=== PATIENT | male | born 2005 | race Caucasian/White ===

== ENCOUNTER 2025-06-08 20:06 | Emergency (ER) | payer BC, MEDICAID ==
[~2025-06-08] VITALS: Ht 167.6 cm; Wt 72.6 kg
[2025-06-08 20:23] VITALS: TEMP 97.7
[2025-06-08] MEDS: propofol 10mg/ml 20ml vial IV ONE (20:55)
[2025-06-08] MEDS: normal saline 1000ML IV soln IVB ONE (20:55)
[2025-06-08] MEDS: HYDROcodone/acetaminophen 10/325mg tab PO ONE (20:56)
--- NOTE | 2025-06-08 21:08 | RADIOLOGY REPORT ---
EXAM: DI SHOULDER, COMPLETE (MIN 2 VWS) CLINICAL HISTORY: SHOULDER PAIN LEFT COMPARISON: None TECHNIQUE: DI SHOULDER, COMPLETE (MIN 2 VWS) Findings/Impression: 2 views of the left shoulder. There is no evidence of an acute fracture, dislocation, blastic, or lytic lesions. No radiopaque foreign bodies. No joint effusion or superficial soft tissue abnormalities.
--- NOTE | 2025-06-08 21:09 | RADIOLOGY REPORT ---
EXAM: DI ELBOW, COMPLETE (3VW MIN) CLINICAL HISTORY: pain LEFT COMPARISON: None TECHNIQUE: DI ELBOW, COMPLETE (3VW MIN) Findings/Impression: 3 views of the left elbow. Anterior dislocation of the left humerus in relation to the radius and ulna. There is no evidence of an acute fracture, blastic, or lytic lesions. No radiopaque foreign bodies. No superficial soft tissue abnormalities.
[2025-06-08] MEDS: ondansetron/PF 4mg/2ml inj IV ONE (21:26)
[2025-06-08] MEDS: morphine 4 MG/ML inj SYRINge IV ONE (21:26)
--- NOTE | 2025-06-08 22:47 | RADIOLOGY REPORT ---
CLINICAL INDICATION: post reduction xray LEFT TECHNIQUE: DI ELBOW,LIMITED (AP/LAT) Comparison: DI ELBOW, COMPLETE (3VW MIN) on DOS: 06/08/25 FINDINGS/IMPRESSION: : Interval reduction of the left elbow joint , anatomic alignment. Elbow joint effusion.
--- NOTE | 2025-06-08 23:33 | Physician Documentation ---
History of Present Illness ~ Chief Complaint: Shoulder pain Stated Complaint: ELBOW PAIN Time Seen by MD: 21:00 Mode of Arrival: POV, Ambulatory HPI This is a 19-year-old male who was practicing [employer] when he was taken down and his elbow was in an awkward position. He reports an immediate onset of sharp nonradiating pain and obvious deformity of the elbow, not able to move the elbow. No palliating factors, aggravated by any attempt to range the joint. No head strike, no loss of consciousness. No blood thinners. This never happened in the past. Did not attempt to treat it. No concern for tobacco, alcohol or illicit substances use Tetanus within 5 years?: No Medication Reconciliation Allergies: Coded Allergies: No Known Allergies (Unverified , 06/08/25) Review of Systems ROS 10 point review of systems was performed and unless noted above in HPI is negative for acute process/complaint. Physical Exam Vital Signs: Temperature: 97.7, Source: Oral, Heart Rate: 94, Respiratory Rate: 16, BP: 129/94, Pulse Oximetry: 100, Weight: 72.600 Oxygen Flow Rate: 0 Physical Exam GENERAL: Awake, alert, oriented, GCS 15, no apparent distress, non-toxic appearing, answers questions, follows commands appropriately. HEENT: Atraumatic, normocephalic, pupils equal, extraocular muscles intact, sclerae anicteric, mucus membranes moist, oropharynx is clear, no stridor. NECK: supple, full active range of motion, trachea midline, no thyromegaly, no lymphadenopathy, no JVD. CARDIOVASCULAR: regular rate/rhythm, no murmurs/gallops/rubs, Pulses are 2+ in all extremities and symmetric. Capillary refill less than 2 seconds. PULMONARY: Nonlabored, good air movement ,no respiratory distress, speaking in full sentences, clear to auscultation bilaterally, no wheezing, no ronchi, no rales, no accessory muscle use. GASTROINTESTINAL: Soft, non-tender, non-distended, normal active bowel sounds, no organomegaly, no pulsatile masses, no CVA tenderness. NEUROLOGIC: Lucid with normal mental status. Normal facial symmetry. Moves all extremities symmetrically and with purpose. No truncal ataxia. Speech is fluid without evidence of dysarthria or aphasia, no focal deficits appreciated. MUSCULOSKELETAL: There is full range of motion of all extremities. There is no joint pain or joint swelling or joint erythema. There is no muscle pain or tenderness or swelling. EXTREMITIES: warm, well-perfused, no cyanosis, no clubbing, no edema, no acute deformities. Skin: warm, dry, no rashes or lesions, no jaundice, no petechiae orpurpura. No ecchymosis. PSYCHIATRIC: Normal affect, normal insight, normal concentration. Focused exam: There is an obvious dislocation of the elbow with the humerus anterior to the ulna. Neurovascularly intact distally. Procedures Joint Reduction Joint Reduction : Reduction By: myself Conscious Sedation: Yes Reduction Attempts: 1 Pre-Procedure NV Exam: within normal limits Post-Procedure NV Exam: within normal limits Post Reduction Film: joint reduced Tolerated Procedure Well?: yes, no complications Moderate Sedation : Date of Procedure: Jun 08, 2025 Chief Complaint: Left elbow deformity See Completed H&P Dated: Jun 08, 2025 Pulmonary Assessment: Unremarkable Neurological Assessment: Unremarkable Cardiovascular Assessment: Unremarkable Other Systems: Unremarkable Hx of sedation difficulty?: No Medications: see reconiliation form ASA Class: I-normal healthy Mallampati Score/Visibility of: Class 1-full Medication Used: Diprivan Staff Present: primary nurse, electric meter technician Monitoring: nurse monitoring, Spo2, NIPB, patient on oxygen via N/C, suction ready, crash cart at bedside, BVM ready Tolerated Procedure Well?: yes, no complications Duration of Procedure (min): 21 Progress Results/Orders Results/Orders Orders - TITA SOUTH DO Elbow, Complete (3vw Min) (06/08/25 20:57) Monitor (06/08/25 20:54) Saline Lock (06/08/25 20:54) Elbow,Limited (Ap/Lat) (06/08/25 22:37) Completed Orders - TITA SOUTH DO Elbow, Complete (3vw Min) (06/08/25 20:57) Propofol Inj (Diprivan Inj) (06/08/25 20:55) Normal Saline 1000ml (0.9% Sodium Chlori (06/08/25 20:55) Morphine 4mg/Ml Inj. (Morphine Inj.) (06/08/25 21:05) Ondansetron Inj. (Zofran 4mg/2ml Vial) (06/08/25 21:05) Elbow,Limited (Ap/Lat) (06/08/25 22:37) Medications Received in ER Medications (Trade) Dose Ordered Sig/Dane Route PRN Reason Start Time Stop Time Status Last Admin Dose Admin (Minerva 10/325mg tab) 1 tab ONCE ONCE PO 06/08/25 20:40 06/08/25 20:41 DC 06/08/25 20:56 1 TAB (morphine inj.) 4 mg ONCE ONCE IV 06/08/25 21:05 06/08/25 21:06 DC 06/08/25 21:26 4 MG (Zofran 4mg/2ml vial) 4 mg ONCE ONCE IV 06/08/25 21:05 06/08/25 21:06 DC 06/08/25 21:26 4 MG Vital Signs 06/08/25 06/08/25 06/08/25 06/08/25 20:23 20:56 21:16 21:18 Temp 97.7 Pulse 62 75 Resp 16 16 18 16 B/P (MAP) 148/86 160/116 (131) Pulse Ox 99 98 O2 Flow Rate 0 0 06/08/25 06/08/25 06/08/25 06/08/25 21:26 22:27 22:34 22:35 Pulse 117 96 93 Resp 16 20 19 17 B/P (MAP) 161/96 163/98 160/111 (127) Pulse Ox 100 100 100 O2 Delivery Room Air Room Air Room Air O2 Flow Rate 0 0 0 06/08/25 06/08/25 22:50 22:52 Pulse 90 94 Resp 15 16 B/P (MAP) 140/115 (123) 129/94 (106) Pulse Ox 96 100 O2 Delivery Room Air O2 Flow Rate 0 0 Medical Decision Making Findings Facility Status: ED Holds, RME process The plan was discussed with the patient, who demonstrates clear understanding of the plan and is in agreement with the plan unless otherwise noted in the chart. All questions have been answered, all concerns were addressed unless otherwise documented. I was available throughout their ED stay for frequent reassessment and questions. Differential Diagnoses (considered and possible or likely): [Elbow dislocation, acute traumatic pain, less likely fracture] ??Differential Diagnoses (considered and unlikely, not requiring evaluation currently): [No evidence of neurovascular injury] MDM Data Please see HPI for the following: Independent Historians and external Records Review. 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 All vitals signs/haemodynamics, ordered tests were independently reviewed and interpreted by myself. Nursing triage complaint and vitals reviewed, additional nursing notes were reviewed as available and I agree unless otherwise noted or documented in contradiction in the chart Vital Signs: Independently reviewed Labs: Independently interpreted Imaging: Independently interpreted Old Medical Records: Independently reviewed, see HPI for relevant summary and information Pulse Oximetry: [100%] interpreted as [normal on room air] by me [Worsted Winder: [Regular Rate, Regular rhythm, no ectopy, NSR] reviewed and interpreted by me] Additionally notably showing: [Hemodynamically stable. X-ray shows what dislocation. Postreduction x-ray shows successful reduction and joint effusion] Tests considered but not ordered include: [Hematologic workup has been considered but does not appear to be necessary given mechanical nature of the injury.] Social Determinants of Health Impact: Patient was evaluated in [facility], [facility] [place] to healthcare due to below par ratio of patient to medical providers. [] Comorbid Conditions Impacting Present Evaluation and Care/Treatment: [None] Management Discussions with other Healthcare Providers: [None] Treatment and Disposition Medication Management (Given or considered): [Pain management]. See EMR for details Consideration for Hospitalization/Escalation/Deescalation of Care: Admission for observation has been considered, [however the patient is able to tolerate p.o., their symptoms are controlled, they are able to rely on oral medications, and their chief complaint/diagnosis can be managed on outpatient basis.] ?ED Course:?[Patient was sedated, adequate relaxation was obtained although he never was fully sedated. This was a light sedation. Dislocation was reduced. He tolerated the procedure well.] ?Shared decision making:?[Patient is hemodynamically stable for discharge home with follow with their primary care provider. [ ] Specific and cautious return precautions provided and discussed with full understanding. Any incidental findings were also discussed and follow up recommendations given. [] All questions answered. Patient/family were able to verbalize back return precautions. Patient/family agree to plan. Copies of imaging and laboratory studies were provided.] Code status:?FULL Please see the full Electronic Medical Record for full details of nursing documentation, medications list, other records of complete past medical history and conditions, vital signs, laboratory studies, and any radiologic study interpretations by radiologists. Portions of this note were completed using [employer] dictation software and as a result there may exist minor errors in spelling. I have reviewed elements of past family and social history and agree as included in note. Departure Disposition: HOME / SELF CARE / HOMELESS Impression: Primary Impression: Elbow dislocation Additional Impression: Acute traumatic pain Condition: Improved Discharge Instructions: Elbow Dislocation, Elbow Dislocation Rehab Additional Instructions: Please follow-up with the orthopedic surgeon of your choice. Treat pain with the ibuprofen and Tylenol. Referrals: NO PRIMARY CARE PROVIDER (PCP) Education Educated: Patient Educated regarding: diagnosis, treatment, prognosis, need for follow up Signature Scribe Signature: No scribe Attestation: This note accurately reflects clinical decisions, work performed by myself, DO BRANNON Haque NICHOLAS M DO Jun 08, 2025 23:33
[2025-06-08 23:39] VITALS: BP 134/82; PULSE 81; RESP 16; O2SAT 97
== END 2025-06-08 23:55 | disposition home or self-care (01) ==
LOC: ER 20:07
DX: S53.195A Other dislocation of left ulnohumeral joint, initial encounter (principal); G89.11 Acute pain due to trauma; X50.9XXA Other and unspecified overexertion or strenuous movements or postures, initial encounter; Y93.89 Activity, other specified; Y92.89 Other specified places as the place of occurrence of the external cause; Y99.8 Other external cause status
CPT/HCPCS: 24600; 73030; 73070; 73080; 99152; 99285; J2270; J2405; J7030; 24640; A4565; A4620; A6446; A6449